=== PATIENT | male | born 1955 | race Caucasian/White ===

== ENCOUNTER 2021-09-16 09:34 | Emergency (ER) | payer MEDICARE ==
[2021-09-16] MEDS: Lactated Ringers 1,000 ML IV SCH (06:51)
[~2021-09-16 09:34] MED LIST: DIPRIVAN 200 MG/20 ML IV ONE; Lactated Ringers 1,000 ML IV ONE
[2021-09-16] MEDS ORDERED: CARDIZEM DRIP 100 MG/100 ML D5W 100 ML IV PRN (09:43)
[2021-09-16] MEDS ORDERED: Cardizem IV 50 MG/10 ML IV ONE ×2 (09:43→10:11)
[2021-09-16] MEDS ORDERED: BABY ASPIRIN 81 MG CHEW PO ONE (09:55)
[2021-09-16] MEDS ORDERED: ENOXAPARIN SODIUM SQ SCH (10:00)
--- NOTE | 2021-09-16 10:01 | ERPHSYRPT ---
- History of Present Illness Time Seen by Provider: 09/16/21 09:45 Source: patient Exam Limitations: no limitations Patient Subjective Stated Complaint: Tachycardia Triage Nursing Assessment: Patient brought to ED per outpatient RN and placed in room. Patient was in recovery and it was noted patient was in SVT with HR of 170s. Patient denies pain or discomfort. Lungs clear a/p steve. Physician History: Patient is a 66-year-old male presents to our ED from recovery status post colonoscopy. Patient was observed to be in SVT and was brought to our ED for evaluation. No chest pain. Patient does state that he had been experiencing some shortness of breath particularly with exertion. Upon arrival to our ED EKG showed patient in atrial fibrillation with rapid ventricular rate. No dizziness no lightheadedness. No nausea or vomiting. Patient denies a history of the same. Patient has a history of stents. Patient currently on Plavix. Colonoscopy was performed Dr. Mac. Patient is currently asymptomatic. He voices no other complaints or concerns at this time. Timing/Duration: today Severity: moderate Modifying Factors: Improves With: nothing Associated Symptoms: shortness of breath Allergies/Adverse Reactions: adhesives Adverse Reaction (Unknown, Uncoded 09/16/21 09:36) Home Medications: Atorvastatin Calcium 40 mg PO DAILY 09/13/21 [History] Cetirizine HCl [Zyrtec] 10 mg PO DAILY 09/13/21 [History] Clopidogrel Bisulfate 75 mg [PLAVIX 75 MG Tablet] 75 mg PO DAILY 09/13/21 [History] Empagliflozin [Jardiance] 10 mg PO DAILY 09/13/21 [History] Levothyroxine Sodium [Levothyroxine] 50 mcg PO DAILY 09/13/21 [History] Mv-Mn/Iron/Folic Acid/Herb 190 [Vitamin D3 Complete Caplet] 1 tab PO DAILY 09/13/21 [History] Omeprazole 40 mg PO DAILY 09/13/21 [History] Propranolol HCl 20 mg PO BID 09/13/21 [History] Tamsulosin HCl 0.4 mg [Flomax 0.4 MG] 0.4 mg PO DAILY 09/13/21 [History] Ubidecarenone [Co Q-10] 200 mg PO DAILY 09/13/21 [History] hydroCHLOROthiazide [Hydrochlorothiazide] 12.5 mg PO DAILY 09/13/21 [History] Hx Tetanus, Diphtheria Vaccination/Date Given: Yes Hx Influenza Vaccination/Date Given: Yes Hx Pneumococcal Vaccination/Date Given: No Immunizations Up to Date: Yes Travel Risk - International Travel Have you traveled outside of the country in past 3 weeks: No - Coronavirus Screening Are you exhibiting any of the following symptoms?: No Close contact with a COVID-19 positive Pt in past 14-21 Days: No - Vaccine Status Have you recieved a Covid-19 vaccination: Yes [employer]: [employer] - Vaccination Dates Date of 2cond Vaccination (if applicable): October 2020 Comment: Booster Aug 2021 - Review of Systems Constitutional: No Symptoms, No Fever, No Chills Eyes: No Symptoms Ears, Nose, & Throat: No Symptoms Respiratory: No Symptoms, No Cough, No Dyspnea Cardiac: No Symptoms, No Chest Pain, No Edema, No Syncope Abdominal/Gastrointestinal: No Symptoms, No Abdominal Pain, No Nausea, No Vom iting, No Diarrhea Genitourinary Symptoms: No Symptoms, No Dysuria Musculoskeletal: No Symptoms, No Back Pain, No Neck Pain Skin: No Symptoms, No Rash Neurological: No Symptoms, No Dizziness, No Focal Weakness, No Sensory Changes Psychological: No Symptoms Endocrine: No Symptoms Hematologic/Lymphatic: No Symptoms Immunological/Allergic: No Symptoms All Other Systems: Reviewed and Negative - Past Medical History Pertinent Past Medical History: Yes Neurological History: No Pertinent History ENT History: No Pertinent History Cardiac History: Congenital Heart Disease Respiratory History: No Pertinent History Endocrine Medical History: Diabetes Type II, Hypothyroidism Musculoskeletal History: Other GI Medical History: GERD, Gallbladder Disease History: No Pertinent History Psycho-Social History: No Pertinent History Male Reproductive Disorders: Prostate Problems Other Medical History: Hard of hearing wears hearing aids - Past Surgical History Past Surgical History: Yes Neuro Surgical History: No Pertinent History Cardiac: Cardiac Stent Respiratory: No Pertinent History Gastrointestinal: Cholecystectomy Genitourinary: No Pertinent History Musculoskeletal: Orthopedic Surgery Male Surgical History: No Pertinent History Other Surgical History: Rt Shoulder,rt knee. Colonoscopy - Social History Smoking Status: Former smoker Exposure to second hand smoke: No Drug Use: none Patient Lives Alone: No - Nursing Vital Signs Nursing Vital Signs: Initial Vital Signs Temperature 97.8 F 09/16/21 07:08 Pulse Rate 54 L 09/16/21 07:08 Respiratory Rate 18 09/16/21 07:08 Blood Pressure 140/86 09/16/21 07:08 O2 Sat by Pulse Oximetry 94 L 09/16/21 07:08 Pain Scale Pain Intensity 0 - Physical Exam General Appearance: no apparent distress, alert Eye Exam: PERRL/EOMI, eyes nml inspection Ears, Nose, Throat Exam: normal ENT inspection, TMs normal, pharynx normal, moist mucous membranes Neck Exam: normal inspection, non-tender, supple, full range of motion Respiratory Exam: normal breath sounds, lungs clear, No respiratory distress Cardiovascular Exam: regular rate/rhythm, normal heart sounds, normal peripheral pulses Gastrointestinal/Abdomen Exam: soft, normal bowel sounds, No tenderness, No mass Back Exam: normal inspection, normal range of motion, No CVA tenderness, No vertebral tenderness Extremity Exam: normal inspection, normal range of motion, pelvis stable Neurologic Exam: alert, oriented x 3, cooperative, normal mood/affect, nml cerebellar function, nml station & gait, sensation nml, No motor deficits Skin Exam: normal color, warm, dry, No rash Lymphatic Exam: No adenopathy SpO2 Interpretation: normal SpO2: 96 O2 Delivery: Room Air - Course Nursing assessment & vital signs reviewed: Yes EKG Interpreted by Me: RATE, A-fib, NORMAL AXIS, NORMAL QRS (Fibrillation with rapid ventricular response) - Radiology Exams Chest X-ray Interpretation: Teleradiologist Report (Portable chest demonstrates normal heart and lungs. Bony thorax intact with moderate degenerative changes and minimal dextroscoliosis.) Ordered Tests: Active Orders 24 hr Category Date Time Status Section[employer] As[employer]er STAT Care 09/16/21 09:43 Active EKG-ER Only STAT Care 09/16/21 09:43 Active IV Insertion STAT Care 09/16/21 09:43 Active Pulse Oximetry (ED) STAT Care 09/16/21 09:43 Active CHEST 1 VIEW (PORTABLE) Stat Exams 09/16/21 09:43 Completed CBC W DIFF Stat Lab 09/16/21 10:10 Completed CMP Stat Lab 09/16/21 10:10 Completed NT PRO BNP Stat Lab 09/16/21 10:10 Completed POCT GLUCOSE Stat Lab 09/16/21 07:31 Received POCT GLUCOSE Stat Lab 09/16/21 07:37 Completed TROPONIN Q3H Lab 09/16/21 10:10 Completed TROPONIN Q3H Lab 09/16/21 12:45 Ordered TROPONIN Q3H Lab 09/16/21 15:45 Ordered TROPONIN Q3H Lab 09/16/21 18:45 Ordered TROPONIN Q3H Lab 09/16/21 21:45 Ordered UA W/RFX UR CULTURE Stat Lab 09/16/21 10:05 Completed EKG STAT RT 09/16/21 10:09 Active Transfer Order Routine Transfer 09/16/21 Ordered Medication Summary Generic Name Dose Route Start Last Admin Trade Name Walter PRN Reason Stop Dose Admin Enoxaparin Sodium 100 mg 09/16/21 10:00 09/16/21 10:14 Enoxaparin Sodium 100 Mg/Ml Syringe 1 mg/kg (100 mg) 10/16/21 09:59 100 mg SQ Administration Q24H VITOR Lactated Ringer's 1,000 mls @ 50 mls/hr 09/16/21 07:00 09/16/21 06:51 Lactated Ringers IV 10/16/21 06:59 50 mls/hr .Q20H VITOR Administration Diltiazem HCl 100 mls @ 5 mls/hr 09/16/21 09:43 09/16/21 10:15 Cardizem Drip 100 Mg/100 Ml D5w IV 10/16/21 09:42 5 mg/hr .Q20H PRN 5 mls/hr HEART RATE/ A-FIB Administration Protocol 5 MG/HR Discontinued Medications Generic Name Dose Route Start Last Admin Trade Name Walter PRN Reason Stop Dose Admin Aspirin 324 mg 09/16/21 09:55 09/16/21 10:16 Aspirin 81 Mg Tab.Chew PO 09/16/21 09:56 324 mg STAT ONE Administration Aspirin Confirm 09/16/21 10:11 Aspirin 81 Mg Tab.Chew Administered 09/16/21 10:12 Dose 324 mg .ROUTE .STK-MED ONE Diltiazem HCl 15 mg 09/16/21 09:43 09/16/21 10:14 Diltiazem Hcl Iv 5 Mg/Ml Vial IV 09/16/21 09:44 15 mg STAT ONE Administration Diltiazem HCl Confirm 09/16/21 10:11 Diltiazem Hcl Iv 5 Mg/Ml Vial Administered 09/16/21 10:12 Dose 50 mg IV .STK-MED ONE Lactated Ringer's Confirm 09/16/21 08:35 Lactated Ringers Administered 09/16/21 08:36 Dose 1,000 mls @ ud IV .STK-MED ONE Propofol Confirm 09/16/21 07:52 Propofol 10 Mg/Ml 20ml Vial Administered 09/16/21 07:53 Dose 400 mg IV .STK-MED ONE Lab/Rad Data: Laboratory Result Diagrams 09/16/21 10:10 09/16/21 10:10 Laboratory Results 09/16/21 09/16/21 09/16/21 Range/Units 10:10 10:10 10:10 WBC 7.4 (4.0-10.5) K/mm3 RBC 5.20 (4.1-5.6) M/mm3 Hgb 16.2 (12.5-18.0) gm/dl Hct 48.0 (42-50) % MCV 92.3 (78-100) fl MCH 31.2 (26-32) pg MCHC 33.8 (32-36) g/dl RDW 12.4 (11.5-14.0) % Plt Count 209 (150-450) K/mm3 MPV 9.3 (7.5-11.0) fl Gran % 66.8 H (36.0-66.0) % Eos # (Auto) 0.11 (0-0.5) Absolute Lymphs (auto) 1.24 (1.0-4.6) Absolute Monos (auto) 1.08 (0.0-1.3) Lymphocytes % 16.7 L (24.0-44.0) % Monocytes % 14.6 H (0.0-12.0) % Eosinophils % 1.5 (0.00-5.0) % Basophils % 0.4 (0.0-0.4) % Absolute Granulocytes 4.95 (1.4-6.9) Basophils # 0.03 (0-0.4) Sodium 139 (137-145) mmol/L Potassium 3.8 (3.5-5.1) mmol/L Chloride 102 (98-107) mmol/L Carbon Dioxide 25 (22-30) mmol/L Anion Gap 15.2 H (5-15) MEQ/L BUN 16 (9-20) mg/dL Creatinine 1.02 (0.66-1.25) mg/dL Estimated GFR > 60.0 ML/MIN Glucose 124 H (74-106) mg/dL POC Glucometer (74 to 106) mg/dL Calcium 9.2 (8.4-10.2) mg/dL Total Bilirubin 1.60 H (0.2-1.3) mg/dL AST 31 (17-59) U/L ALT 29 (0-50) U/L Alkaline Phosphatase 91 (38-126) U/L Troponin I 0.018 (0.000-0.034) ng/mL NT-Pro-B Natriuret Pep 127 (0-900) pg/mL Serum Total Protein 7.4 (6.3-8.2) g/dL Albumin 4.3 (3.5-5.0) g/dL Urine Color (YELLOW) Urine Appearance (CLEAR) Urine pH (5-6) Ur Specific Davy (1.005-1.025) Urine Protein (Negative) Urine Ketones (NEGATIVE) Urine Blood (0-5) Herrera/ul Urine Nitrite (NEGATIVE) Urine Bilirubin (NEGATIVE) Urine Urobilinogen (0-1) mg/dL Ur Leukocyte Esterase (NEGATIVE) Urine WBC (Auto) (0-5) /HPF Urine RBC (Auto) (0-2) /HPF U Epithel Cells (Auto) (FEW) /HPF Urine Bacteria (Auto) (NEGATIVE) /HPF Urine Culture Reflexed (NO) Urine Glucose (NEGATIVE) mg/dL Influenza Type A Ag (NEGATIVE) Influenza Type B Ag (NEGATIVE) RSV (PCR) (Negative) SARS-CoV-2 (PCR) (NEGATIVE) 09/16/21 09/16/21 09/16/21 Range/Units 10:05 10:05 07:37 WBC (4.0-10.5) K/mm3 RBC (4.1-5.6) M/mm3 Hgb (12.5-18.0) gm/dl Hct (42-50) % MCV (78-100) fl MCH (26-32) pg MCHC (32-36) g/dl RDW (11.5-14.0) % Plt Count (150-450) K/mm3 MPV (7.5-11.0) fl Gran % (36.0-66.0) % Eos # (Auto) (0-0.5) Absolute Lymphs (auto) (1.0-4.6) Absolute Monos (auto) (0.0-1.3) Lymphocytes % (24.0-44.0) % Monocytes % (0.0-12.0) % Eosinophils % (0.00-5.0) % Basophils % (0.0-0.4) % Absolute Granulocytes (1.4-6.9) Basophils # (0-0.4) Sodium (137-145) mmol/L Potassium (3.5-5.1) mmol/L Chloride (98-107) mmol/L Carbon Dioxide (22-30) mmol/L Anion Gap (5-15) MEQ/L BUN (9-20) mg/dL Creatinine (0.66-1.25) mg/dL Estimated GFR ML/MIN Glucose (74-106) mg/dL POC Glucometer 137 H (74 to 106) mg/dL Calcium (8.4-10.2) mg/dL Total Bilirubin (0.2-1.3) mg/dL AST (17-59) U/L ALT (0-50) U/L Alkaline Phosphatase (38-126) U/L Troponin I (0.000-0.034) ng/mL NT-Pro-B Natriuret Pep (0-900) pg/mL Serum Total Protein (6.3-8.2) g/dL Albumin (3.5-5.0) g/dL Urine Color YELLOW (YELLOW) Urine Appearance CLEAR (CLEAR) Urine pH 6.0 (5-6) Ur Specific Davy 1.013 (1.005-1.025) Urine Protein NEGATIVE (Negative) Urine Ketones TRACE (NEGATIVE) Urine Blood NEGATIVE (0-5) Herrera/ul Urine Nitrite NEGATIVE (NEGATIVE) Urine Bilirubin NEGATIVE (NEGATIVE) Urine Urobilinogen NEGATIVE (0-1) mg/dL Ur Leukocyte Esterase NEGATIVE (NEGATIVE) Urine WBC (Auto) 0-2 (0-5) /HPF Urine RBC (Auto) 0-2 (0-2) /HPF U Epithel Cells (Auto) FEW (FEW) /HPF Urine Bacteria (Auto) FEW (NEGATIVE) /HPF Urine Culture Reflexed NO (NO) Urine Glucose >=500 (NEGATIVE) mg/dL Influenza Type A Ag NEGATIVE (NEGATIVE) Influenza Type B Ag NEGATIVE (NEGATIVE) RSV (PCR) NEGATIVE (Negative) SARS-CoV-2 (PCR) NEGATIVE (NEGATIVE) - Progress Progress: improved Progress Note: Case discussed with Dr. Quevedo who accepts admission to observation. Dr. Mac aware that patient will be admitted to Dr. Quevedo's service. Plan of care discussed with patient patient agreed to admission [facility] for further evaluation and treatment. Portions of this note were created with voice recognition technology. There may be grammatical, spelling, punctuation or sound alike errors Admission diagnoses A. fib with RVR post colonoscopy 09/16/21 11:[address] Nara Will see patient in: hospital (observation) Counseled pt/family regarding: lab results, diagnosis, rad results - Departure Departure Disposition: Observation Clinical Impression: Total bilirubin, elevated, Glucosuria, Atrial fibrillation with rapid ventricular response Condition: Stable Critical Care Time: No Referrals: YANICK MAC [Primary Care Provider] - Follow up/PCP as directed
--- NOTE | 2021-09-16 10:04 | XRAY ---
Indication: Short of breath. Comparison: None Portable chest demonstrates normal heart and lungs. Bony thorax intact with moderate degenerative changes and minimal dextroscoliosis.
[2021-09-16] MEDS ORDERED: BABY ASPIRIN 81 MG CHEW ONE (10:11)
[2021-09-16 10:18] LABS: Absolute Neutrophil Ct (ANC) 4.95 (1.4-6.9); Basophil (Absolute #) 0.03 (0-0.4); Eosinophil % 1.5 % (0.00-5.0); Eosinophil (Absolute #) 0.11 (0-0.5); Hemoglobin 16.2 gm/dl (12.5-18.0); Lymphocyte (Absolute #) 1.24 (1.0-4.6); Lymphocytes % 16.7 % (24.0-44.0); Mean Cell Volume 92.3 fl (78-100); Mean Corpuscular Hemoglobin 31.2 pg (26-32); Mean Corpuscular Hgb Concent. 33.8 g/dl (32-36); Mean Platelet Volume 9.3 fl (7.5-11.0); Monocyte (Absolute #) 1.08 (0.0-1.3); Monocytes % 14.6 % (0.0-12.0); Neutrophil % 66.8 % (36.0-66.0); Platelet Count 209 K/mm3 (150-450); Red Cell Distribution Width 12.4 % (11.5-14.0); White Blood Count 7.4 K/mm3 (4.0-10.5)
[2021-09-16 10:19] LABS: Appearance CLEAR (CLEAR); Bilirubin NEGATIVE (NEGATIVE); Blood NEGATIVE Ery/ul (0-5); Glucose >=500 mg/dL (NEGATIVE); Ketones TRACE (NEGATIVE); Leukocyte Esterase NEGATIVE (NEGATIVE); Nitrite NEGATIVE (NEGATIVE); Protein,Urine Dip NEGATIVE (Negative); Specific Gravity 1.013 (1.005-1.025); Urobilinogen NEGATIVE mg/dL (0-1)
[2021-09-16 10:22] LABS: Bacteria FEW /HPF (NEGATIVE); Epithelial Cells FEW /HPF (FEW); RBC 0-2 /HPF (0-2); WBC 0-2 /HPF (0-5)
[2021-09-16 10:26] LABS: ALBUMIN 4.3 g/dL (3.5-5.0); ALKALINE PHOSPHATASE 91 U/L (38-126); ANION GAP 15.2 MEQ/L (5-15); BLOOD UREA NITROGEN 16 mg/dL (9-20); CHLORIDE 102 mmol/L (98-107); Calcium 9.2 mg/dL (8.4-10.2); Carbon Dioxide 25 mmol/L (22-30); Creatinine 1 1.02 mg/dL (0.66-1.25); EST GLOMERULAR FILTRATION RATE > 60.0 ML/MIN; Glucose 124 mg/dL (74-106); Potassium 3.8 mmol/L (3.5-5.1); SGOT/AST 31 U/L (17-59); SGPT/ALT 29 U/L (0-50); SODIUM 139 mmol/L (137-145); Total Protein 7.4 g/dL (6.3-8.2)
[2021-09-16 10:55] LABS: INFLUENZA A NEGATIVE (NEGATIVE); INFLUENZA B NEGATIVE (NEGATIVE); RESPIRATORY SYNCTIAL VIRUS NEGATIVE (Negative); SARS-CoV-2 Xpert Express NEGATIVE (NEGATIVE)
[2021-09-16 11:01] LABS: NT PRO BNP 127 pg/mL (0-900)
--- NOTE | 2021-09-16 13:30 | OP ---
SURGERY DATE/TIME: 09/16/2021 0757 PREOPERATIVE DIAGNOSIS: Screening exam. POSTOPERATIVE DIAGNOSES: 1) Moderate sigmoid diverticulosis. 2) The patient was also noted to be in atrial fibrillation. PROCEDURE: Colonoscopy. SURGEON: Dr. Mac. ANESTHESIA: MAC. Medications given by anesthesia department. HISTORY: The patient is a 66-year-old white male patient reporting his previous colonoscopy was 13 years ago and was normal at that time. The patient is felt the need to have endoscopic evaluation. He was appraised of the risks of the procedure including the risk of perforation, phlebitis, untoward reaction to medication, bleeding and missed lesions. The patient verbalized his understanding and desired to have the procedure performed. DESCRIPTION OF PROCEDURE: The patient was given the medications by the anesthesia department. He was placed in the left lateral decubitus position. A digital rectal examination was performed and revealed normal anal sphincter tone and no masses. The flexible Olympus pediatric colonoscope was used to intubate the rectum. A view of the colon was developed sequentially to the cecum. Upon insertion and withdrawal was noted sigmoid diverticulosis moderate in nature. The scope was removed from the patient who tolerated the procedure well and was sent back to OP recovery in good condition. The prep was noted to be fair. There were some solid stool still left in the colon in certain places and the right side of colon required a lot of suction and flexion to see clearly. We will obtain a 12-leak EKG. The patient is already on aspirin and Plavix from a previous stent. Will notify his primary care provider of diagnosis of what appears to be new for him of atrial fibrillation.
--- NOTE | 2021-09-16 14:01 | PCM.HP ---
History of Present Illness - Chief Complaint Chief Complaint: screening History of Present Illness: is a 66 year old male who had a screening colonoscopy this morning, in recovery he had an elevated heart rate up to 180 with irregularities, he has had no chest pain but perhaps some shortness of breath today. He has a prior history of CAD with stent placed 10 years ago. He has no prior history of a fib or arrythmia. - Review of Systems Constitutional: No Fever, No Chills Respiratory: No Cough, No Short Of Breath Cardiac: No Chest Pain, No Edema, No Syncope Abdominal/Gastrointestinal: No Abdominal Pain, No Nausea, No Vomiting, No Diarrhea Genitourinary Symptoms: No Dysuria Skin: No Rash Neurological: No Dizziness, No Focal Weakness, No Sensory Changes All Other Systems: Reviewed and Negative Medications & Allergies Home Medications: Home Medication List Atorvastatin Calcium 40 mg PO DAILY 09/13/21 [History Confirmed 09/16/21] Cetirizine HCl [Zyrtec] 10 mg PO DAILY 09/13/21 [History Confirmed 09/16/21] Clopidogrel Bisulfate 75 mg [PLAVIX 75 MG Tablet] 75 mg PO DAILY 09/13/21 [History Confirmed 09/16/21] Empagliflozin [Jardiance] 10 mg PO DAILY 09/13/21 [History Confirmed 09/16/21] Levothyroxine Sodium [Levothyroxine] 50 mcg PO DAILY 09/13/21 [History Confirmed 09/16/21] Mv-Mn/Iron/Folic Acid/Herb 190 [Vitamin D3 Complete Caplet] 1 tab PO DAILY 09/13/21 [History Confirmed 09/16/21] Omeprazole 40 mg PO DAILY 09/13/21 [History Confirmed 09/16/21] Propranolol HCl 20 mg PO BID 09/13/21 [History Confirmed 09/16/21] Tamsulosin HCl 0.4 mg [Flomax 0.4 MG] 0.4 mg PO DAILY 09/13/21 [History Confirmed 09/16/21] Ubidecarenone [Co Q-10] 200 mg PO DAILY 09/13/21 [History Confirmed 09/16/21] hydroCHLOROthiazide [Hydrochlorothiazide] 12.5 mg PO DAILY 09/13/21 [History Confirmed 09/16/21] Allergies/Adverse Reactions: Allergies Allergy/AdvReac Type Severity Reaction Status Date / Time adhesives AdvReac Unknown Uncoded 09/16/21 09:36 - Past Medical History Past Medical History: Yes Neurological History: No Pertinent History ENT History: No Pertinent History Cardiac History: Congenital Heart Disease Respiratory History: No Pertinent History Endocrine Medical History: Diabetes Type II, Hypothyroidism Musculoskelatal History: Other GI Medical History: GERD, Gallbladder Disease History: No Pertinent History Pyscho-Social History: No Pertinent History Male Reproductive Disorders: Prostate Problems Comment: Hard of hearing wears hearing aids - Past Surgical History Past Surgical History: Yes Neuro Surgical History: No Pertinent History Cardiac History: Cardiac Stent Respiratory Surgery: No Pertinent History GI Surgical History: Cholecystectomy Genitourinary Surgical Hx: No Pertinent History Musculskeletal Surgical Hx: Orthopedic Surgery Male Surgical History: No Pertinent History Other Surgical History: Rt Shoulder,rt knee. Colonoscopy - Social History Smoking Status: Former smoker Exposure to second hand smoke: No Alcohol: Rarely Drug Use: none - Physical Exam Vital Signs: Vital Signs - 24 hr Temp Pulse Resp BP BP Pulse Ox 09/16/21 13:17 142 H 18 104/84 09/16/21 13:00 126 H 20 103/57 95 09/16/21 11:53 96 09/16/21 10:34 93 H 18 126/101 98 09/16/21 10:15 99 H 16 101/82 09/16/21 10:09 107 H 09/16/21 09:45 96 09/16/21 09:36 97.5 F 86 18 101/82 99 09/16/21 08:55 97.8 F 64 18 122/72 97 09/16/21 07:19 97.8 F 54 L 18 140/86 94 L 09/16/21 07:08 97.8 F 54 L 18 140/86 94 L General Appearance: no apparent distress, alert Neurologic Exam: alert, oriented x 3, cooperative, normal mood/affect, nml cerebellar function, nml station & gait, sensation nml, No motor deficits Respiratory Exam: normal breath sounds, lungs clear, No respiratory distress Cardiovascular Exam: irregular Gastrointestinal/Abdomen Exam: soft, normal bowel sounds, No tenderness, No mass Extremity Exam: normal inspection, normal range of motion, pelvis stable Skin Exam: normal color, warm, dry, No rash Results - Labs Lab/Micro Results: Lab Results-Last 24 Hours 09/16/21 09/16/21 09/16/21 Range/Units 07:37 10:05 10:05 WBC (4.0-10.5) K/mm3 RBC (4.1-5.6) M/mm3 Hgb (12.5-18.0) gm/dl Hct (42-50) % MCV (78-100) fl MCH (26-32) pg MCHC (32-36) g/dl RDW (11.5-14.0) % Plt Count (150-450) K/mm3 MPV (7.5-11.0) fl Gran % (36.0-66.0) % Eos # (Auto) (0-0.5) Absolute Lymphs (auto) (1.0-4.6) Absolute Monos (auto) (0.0-1.3) Lymphocytes % (24.0-44.0) % Monocytes % (0.0-12.0) % Eosinophils % (0.00-5.0) % Basophils % (0.0-0.4) % Absolute Granulocytes (1.4-6.9) Basophils # (0-0.4) Sodium (137-145) mmol/L Potassium (3.5-5.1) mmol/L Chloride (98-107) mmol/L Carbon Dioxide (22-30) mmol/L Anion Gap (5-15) MEQ/L BUN (9-20) mg/dL Creatinine (0.66-1.25) mg/dL Estimated GFR ML/MIN Glucose (74-106) mg/dL POC Glucometer 137 H (74 to 106) mg/dL Calcium (8.4-10.2) mg/dL Total Bilirubin (0.2-1.3) mg/dL AST (17-59) U/L ALT (0-50) U/L Alkaline Phosphatase (38-126) U/L Troponin I (0.000-0.034) ng/mL NT-Pro-B Natriuret Pep (0-900) pg/mL Serum Total Protein (6.3-8.2) g/dL Albumin (3.5-5.0) g/dL Urine Color YELLOW (YELLOW) Urine Appearance CLEAR (CLEAR) Urine pH 6.0 (5-6) Ur Specific [place] 1.013 (1.005-1.025) Urine Protein NEGATIVE (Negative) Urine Ketones TRACE (NEGATIVE) Urine Blood NEGATIVE (0-5) Herrera/ul Urine Nitrite NEGATIVE (NEGATIVE) Urine Bilirubin NEGATIVE (NEGATIVE) Urine Urobilinogen NEGATIVE (0-1) mg/dL Ur Leukocyte Esterase NEGATIVE (NEGATIVE) Urine WBC (Auto) 0-2 (0-5) /HPF Urine RBC (Auto) 0-2 (0-2) /HPF U Epithel Cells (Auto) FEW (FEW) /HPF Urine Bacteria (Auto) FEW (NEGATIVE) /HPF Urine Culture Reflexed NO (NO) Urine Glucose >=500 (NEGATIVE) mg/dL Influenza Type A Ag NEGATIVE (NEGATIVE) Influenza Type B Ag NEGATIVE (NEGATIVE) RSV (PCR) NEGATIVE (Negative) SARS-CoV-2 (PCR) NEGATIVE (NEGATIVE) 09/16/21 09/16/21 09/16/21 Range/Units 10:10 10:10 10:10 WBC 7.4 (4.0-10.5) K/mm3 RBC 5.20 (4.1-5.6) M/mm3 Hgb 16.2 (12.5-18.0) gm/dl Hct 48.0 (42-50) % MCV 92.3 (78-100) fl MCH 31.2 (26-32) pg MCHC 33.8 (32-36) g/dl RDW 12.4 (11.5-14.0) % Plt Count 209 (150-450) K/mm3 MPV 9.3 (7.5-11.0) fl Gran % 66.8 H (36.0-66.0) % Eos # (Auto) 0.11 (0-0.5) Absolute Lymphs (auto) 1.24 (1.0-4.6) Absolute Monos (auto) 1.08 (0.0-1.3) Lymphocytes % 16.7 L (24.0-44.0) % Monocytes % 14.6 H (0.0-12.0) % Eosinophils % 1.5 (0.00-5.0) % Basophils % 0.4 (0.0-0.4) % Absolute Granulocytes 4.95 (1.4-6.9) Basophils # 0.03 (0-0.4) Sodium 139 (137-145) mmol/L Potassium 3.8 (3.5-5.1) mmol/L Chloride 102 (98-107) mmol/L Carbon Dioxide 25 (22-30) mmol/L Anion Gap 15.2 H (5-15) MEQ/L BUN 16 (9-20) mg/dL Creatinine 1.02 (0.66-1.25) mg/dL Estimated GFR > 60.0 ML/MIN Glucose 124 H (74-106) mg/dL POC Glucometer (74 to 106) mg/dL Calcium 9.2 (8.4-10.2) mg/dL Total Bilirubin 1.60 H (0.2-1.3) mg/dL AST 31 (17-59) U/L ALT 29 (0-50) U/L Alkaline Phosphatase 91 (38-126) U/L Troponin I 0.018 (0.000-0.034) ng/mL NT-Pro-B Natriuret Pep 127 (0-900) pg/mL Serum Total Protein 7.4 (6.3-8.2) g/dL Albumin 4.3 (3.5-5.0) g/dL Urine Color (YELLOW) Urine Appearance (CLEAR) Urine pH (5-6) Ur Specific [place] (1.005-1.025) Urine Protein (Negative) Urine Ketones (NEGATIVE) Urine Blood (0-5) Herrera/ul Urine Nitrite (NEGATIVE) Urine Bilirubin (NEGATIVE) Urine Urobilinogen (0-1) mg/dL Ur Leukocyte Esterase (NEGATIVE) Urine WBC (Auto) (0-5) /HPF Urine RBC (Auto) (0-2) /HPF U Epithel Cells (Auto) (FEW) /HPF Urine Bacteria (Auto) (NEGATIVE) /HPF Urine Culture Reflexed (NO) Urine Glucose (NEGATIVE) mg/dL Influenza Type A Ag (NEGATIVE) Influenza Type B Ag (NEGATIVE) RSV (PCR) (Negative) SARS-CoV-2 (PCR) (NEGATIVE) 09/16/21 Range/Units 12:40 WBC (4.0-10.5) K/mm3 RBC (4.1-5.6) M/mm3 Hgb (12.5-18.0) gm/dl Hct (42-50) % MCV (78-100) fl MCH (26-32) pg MCHC (32-36) g/dl RDW (11.5-14.0) % Plt Count (150-450) K/mm3 MPV (7.5-11.0) fl Gran % (36.0-66.0) % Eos # (Auto) (0-0.5) Absolute Lymphs (auto) (1.0-4.6) Absolute Monos (auto) (0.0-1.3) Lymphocytes % (24.0-44.0) % Monocytes % (0.0-12.0) % Eosinophils % (0.00-5.0) % Basophils % (0.0-0.4) % Absolute Granulocytes (1.4-6.9) Basophils # (0-0.4) Sodium (137-145) mmol/L Potassium (3.5-5.1) mmol/L Chloride (98-107) mmol/L Carbon Dioxide (22-30) mmol/L Anion Gap (5-15) MEQ/L BUN (9-20) mg/dL Creatinine (0.66-1.25) mg/dL Estimated GFR ML/MIN Glucose (74-106) mg/dL POC Glucometer (74 to 106) mg/dL Calcium (8.4-10.2) mg/dL Total Bilirubin (0.2-1.3) mg/dL AST (17-59) U/L ALT (0-50) U/L Alkaline Phosphatase (38-126) U/L Troponin I 0.014 (0.000-0.034) ng/mL NT-Pro-B Natriuret Pep (0-900) pg/mL Serum Total Protein (6.3-8.2) g/dL Albumin (3.5-5.0) g/dL Urine Color (YELLOW) Urine Appearance (CLEAR) Urine pH (5-6) Ur Specific [place] (1.005-1.025) Urine Protein (Negative) Urine Ketones (NEGATIVE) Urine Blood (0-5) Herrera/ul Urine Nitrite (NEGATIVE) Urine Bilirubin (NEGATIVE) Urine Urobilinogen (0-1) mg/dL Ur Leukocyte Esterase (NEGATIVE) Urine WBC (Auto) (0-5) /HPF Urine RBC (Auto) (0-2) /HPF U Epithel Cells (Auto) (FEW) /HPF Urine Bacteria (Auto) (NEGATIVE) /HPF Urine Culture Reflexed (NO) Urine Glucose (NEGATIVE) mg/dL Influenza Type A Ag (NEGATIVE) Influenza Type B Ag (NEGATIVE) RSV (PCR) (Negative) SARS-CoV-2 (PCR) (NEGATIVE) - Radiology Impressions Radiology Exams & Impressions: Radiology Procedures Category Date Time Status CHEST 1 VIEW (PORTABLE) Stat Exams 09/16/21 09:43 Completed - Other Procedures and Tests Respiratory Therapy 09/16/21 10:09 EKG STAT Assessment/Plan (1) Atrial fibrillation with rapid ventricular response Current Visit: Yes Status: Acute Assessment & Plan: new onset, will cover with lovenox and continue cardizem gtt. check echo and th yroid functions, cycle troponins. Code(s): I48.91 - UNSPECIFIED ATRIAL FIBRILLATION (2) Type 2 diabetes mellitus Current Visit: Yes Status: Acute (3) Coronary artery disease Current Visit: Yes Status: Acute Code(s): I25.10 - ATHSCL HEART DISEASE OF [place] CORONARY ARTERY W/O ANG PCTRS
[2021-09-16] MEDS ORDERED: MILK OF MAGNESIA 30 ML PO PRN (15:05)
[2021-09-16] MEDS ORDERED: MAALOX ES 30 ML UNIT DOSE PO PRN (15:05)
[2021-09-16] MEDS ORDERED: TYLENOL 325 MG PO PRN (15:05)
[2021-09-16] MEDS ORDERED: Senokot-S Tablet PO PRN (15:05)
[2021-09-16] MEDS ORDERED: Zofran 4 MG/2 ML VIAL IV PRN (15:05)
[2021-09-16] MEDS ORDERED: Flomax 0.4 MG PO ONE (22:00)
[2021-09-16] MEDS ORDERED: Cardizem 30 MG PO SCH (22:00)
[2021-09-16] MEDS ORDERED: Inderal 20 MG PO ONE (22:00)
[2021-09-17 04:23] VITALS: BP 112/71
[2021-09-17] MEDS: Lactated Ringers 1,000 ML IV SCH (05:38)
[2021-09-17 06:53] LABS: ALBUMIN 3.7 g/dL (3.5-5.0); ALKALINE PHOSPHATASE 75 U/L (38-126); ANION GAP 10.8 MEQ/L (5-15); BLOOD UREA NITROGEN 14 mg/dL (9-20); CHLORIDE 105 mmol/L (98-107); Calcium 8.6 mg/dL (8.4-10.2); Carbon Dioxide 27 mmol/L (22-30); Cholesterol 153 mg/dL (50-200); Creatinine 1 1.02 mg/dL (0.66-1.25); EST GLOMERULAR FILTRATION RATE > 60.0 ML/MIN; Glucose 141 mg/dL (74-106); HDL CHOLESTEROL 37 mg/dL (40-60); LDL, DIRECT 91 mg/dL (30-100); MAGNESIUM 1.9 mg/dL (1.6-2.3); Potassium 3.8 mmol/L (3.5-5.1); Risk Ratio 4.1; SGOT/AST 22 U/L (17-59); SGPT/ALT 22 U/L (0-50); SODIUM 139 mmol/L (137-145); TRIGLYCERIDE 137 mg/dL (30-150); Total Protein 6.5 g/dL (6.3-8.2)
[2021-09-17 07:51] VITALS: PULSE 56; O2SAT 94
--- NOTE | 2021-09-17 08:41 | PCM.DS ---
Discharge Summary Date of Admission: 09/16/21 13:22 Admitting Physician: EMMETT GREEN Primary Care Provider: YANICK CAMARA Allergies Allergies adhesives Adverse Reaction (Unknown, Uncoded 09/16/21 09:36) Hospital Summary - Hospital Course Hospital Course: is a 66 year old male with CAD (hx stents, on plavix) and DM II who had a screening colonoscopy yesterday, in recovery he had an elevated heart rate up to 180 with irregularities. Denied chest pain but had shortness of breath in the a.m. He has no prior history of a fib or arrythmia. He was placed on cardizem drip initially wiht HR in the 80s. He was started on po cardizem and HR has stayed in the 50s-80s in regular rhythm. This morning he will be given cardizem CD (24 hr) 120mg and will be discharged to home. He will continue to monitor his HR. He has been on SQ lovenox here, in addition to his plavix. Will be sent home on Eliquis (first dose here this morning) 5mg po BID pending consultation with his transmitter engineer in charge in [place], thank you. He had an echo and the report is pending. F/u with Dr. Green in 1 week. - Vitals & Intake/Output Vital Signs: Vital Signs Temperature 96.8 F 09/17/21 07:50 Pulse Rate 56 L 09/17/21 07:50 Respiratory Rate 19 09/17/21 07:50 Blood Pressure 112/71 09/17/21 07:50 O2 Sat by Pulse Oximetry 94 L 09/17/21 07:50 Intake & Output: Intake & Output 09/14/21 09/15/21 09/16/21 09/17/21 11:59 11:59 11:59 11:59 Intake Total 1372 Output Total 280 Balance 1092 Weight 102.512 kg 105.9 kg - Lab Result Diagrams: 09/16/21 10:10 09/17/21 04:45 Lab Results-Last 24 Hrs: Lab Results-Last 24 Hours 09/16/21 09/16/21 09/16/21 Range/Units 10:05 10:05 10:10 WBC 7.4 (4.0-10.5) K/mm3 RBC 5.20 (4.1-5.6) M/mm3 Hgb 16.2 (12.5-18.0) gm/dl Hct 48.0 (42-50) % MCV 92.3 (78-100) fl MCH 31.2 (26-32) pg MCHC 33.8 (32-36) g/dl RDW 12.4 (11.5-14.0) % Plt Count 209 (150-450) K/mm3 MPV 9.3 (7.5-11.0) fl Gran % 66.8 H (36.0-66.0) % Eos # (Auto) 0.11 (0-0.5) Absolute Lymphs (auto) 1.24 (1.0-4.6) Absolute Monos (auto) 1.08 (0.0-1.3) Lymphocytes % 16.7 L (24.0-44.0) % Monocytes % 14.6 H (0.0-12.0) % Eosinophils % 1.5 (0.00-5.0) % Basophils % 0.4 (0.0-0.4) % Absolute Granulocytes 4.95 (1.4-6.9) Basophils # 0.03 (0-0.4) Sodium (137-145) mmol/L Potassium (3.5-5.1) mmol/L Chloride (98-107) mmol/L Carbon Dioxide (22-30) mmol/L Anion Gap (5-15) MEQ/L BUN (9-20) mg/dL Creatinine (0.66-1.25) mg/dL Estimated GFR ML/MIN Glucose (74-106) mg/dL Calcium (8.4-10.2) mg/dL Magnesium (1.6-2.3) mg/dL Total Bilirubin (0.2-1.3) mg/dL AST (17-59) U/L ALT (0-50) U/L Alkaline Phosphatase (38-126) U/L Troponin I (0.000-0.034) ng/mL NT-Pro-B Natriuret Pep (0-900) pg/mL Serum Total Protein (6.3-8.2) g/dL Albumin (3.5-5.0) g/dL Triglycerides (30-150) mg/dL Cholesterol (50-200) mg/dL LDL Cholesterol (30-100) mg/dL HDL Cholesterol (40-60) mg/dL Heart Disease Risk Ratio TSH 3rd Generation (0.47-4.68) mIU/L Urine Color YELLOW (YELLOW) Urine Appearance CLEAR (CLEAR) Urine pH 6.0 (5-6) Ur Specific [place] 1.013 (1.005-1.025) Urine Protein NEGATIVE (Negative) Urine Ketones TRACE (NEGATIVE) Urine Blood NEGATIVE (0-5) Herrera/ul Urine Nitrite NEGATIVE (NEGATIVE) Urine Bilirubin NEGATIVE (NEGATIVE) Urine Urobilinogen NEGATIVE (0-1) mg/dL Ur Leukocyte Esterase NEGATIVE (NEGATIVE) Urine WBC (Auto) 0-2 (0-5) /HPF Urine RBC (Auto) 0-2 (0-2) /HPF U Epithel Cells (Auto) FEW (FEW) /HPF Urine Bacteria (Auto) FEW (NEGATIVE) /HPF Urine Culture Reflexed NO (NO) Urine Glucose >=500 (NEGATIVE) mg/dL Influenza Type A Ag NEGATIVE (NEGATIVE) Influenza Type B Ag NEGATIVE (NEGATIVE) RSV (PCR) NEGATIVE (Negative) SARS-CoV-2 (PCR) NEGATIVE (NEGATIVE) 09/16/21 09/16/21 09/16/21 Range/Units 10:10 10:10 10:10 WBC (4.0-10.5) K/mm3 RBC (4.1-5.6) M/mm3 Hgb (12.5-18.0) gm/dl Hct (42-50) % MCV (78-100) fl MCH (26-32) pg MCHC (32-36) g/dl RDW (11.5-14.0) % Plt Count (150-450) K/mm3 MPV (7.5-11.0) fl Gran % (36.0-66.0) % Eos # (Auto) (0-0.5) Absolute Lymphs (auto) (1.0-4.6) Absolute Monos (auto) (0.0-1.3) Lymphocytes % (24.0-44.0) % Monocytes % (0.0-12.0) % Eosinophils % (0.00-5.0) % Basophils % (0.0-0.4) % Absolute Granulocytes (1.4-6.9) Basophils # (0-0.4) Sodium 139 (137-145) mmol/L Potassium 3.8 (3.5-5.1) mmol/L Chloride 102 (98-107) mmol/L Carbon Dioxide 25 (22-30) mmol/L Anion Gap 15.2 H (5-15) MEQ/L BUN 16 (9-20) mg/dL Creatinine 1.02 (0.66-1.25) mg/dL Estimated GFR > 60.0 ML/MIN Glucose 124 H (74-106) mg/dL Calcium 9.2 (8.4-10.2) mg/dL Magnesium (1.6-2.3) mg/dL Total Bilirubin 1.60 H (0.2-1.3) mg/dL AST 31 (17-59) U/L ALT 29 (0-50) U/L Alkaline Phosphatase 91 (38-126) U/L Troponin I 0.018 (0.000-0.034) ng/mL NT-Pro-B Natriuret Pep 127 (0-900) pg/mL Serum Total Protein 7.4 (6.3-8.2) g/dL Albumin 4.3 (3.5-5.0) g/dL Triglycerides (30-150) mg/dL Cholesterol (50-200) mg/dL LDL Cholesterol (30-100) mg/dL HDL Cholesterol (40-60) mg/dL Heart Disease Risk Ratio TSH 3rd Generation 1.730 (0.47-4.68) mIU/L Urine Color (YELLOW) Urine Appearance (CLEAR) Urine pH (5-6) Ur Specific [place] (1.005-1.025) Urine Protein (Negative) Urine Ketones (NEGATIVE) Urine Blood (0-5) Herrera/ul Urine Nitrite (NEGATIVE) Urine Bilirubin (NEGATIVE) Urine Urobilinogen (0-1) mg/dL Ur Leukocyte Esterase (NEGATIVE) Urine WBC (Auto) (0-5) /HPF Urine RBC (Auto) (0-2) /HPF U Epithel Cells (Auto) (FEW) /HPF Urine Bacteria (Auto) (NEGATIVE) /HPF Urine Culture Reflexed (NO) Urine Glucose (NEGATIVE) mg/dL Influenza Type A Ag (NEGATIVE) Influenza Type B Ag (NEGATIVE) RSV (PCR) (Negative) SARS-CoV-2 (PCR) (NEGATIVE) 09/16/21 09/16/21 09/16/21 Range/Units 12:40 15:52 18:45 WBC (4.0-10.5) K/mm3 RBC (4.1-5.6) M/mm3 Hgb (12.5-18.0) gm/dl Hct (42-50) % MCV (78-100) fl MCH (26-32) pg MCHC (32-36) g/dl RDW (11.5-14.0) % Plt Count (150-450) K/mm3 MPV (7.5-11.0) fl Gran % (36.0-66.0) % Eos # (Auto) (0-0.5) Absolute Lymphs (auto) (1.0-4.6) Absolute Monos (auto) (0.0-1.3) Lymphocytes % (24.0-44.0) % Monocytes % (0.0-12.0) % Eosinophils % (0.00-5.0) % Basophils % (0.0-0.4) % Absolute Granulocytes (1.4-6.9) Basophils # (0-0.4) Sodium (137-145) mmol/L Potassium (3.5-5.1) mmol/L Chloride (98-107) mmol/L Carbon Dioxide (22-30) mmol/L Anion Gap (5-15) MEQ/L BUN (9-20) mg/dL Creatinine (0.66-1.25) mg/dL Estimated GFR ML/MIN Glucose (74-106) mg/dL Calcium (8.4-10.2) mg/dL Magnesium (1.6-2.3) mg/dL Total Bilirubin (0.2-1.3) mg/dL AST (17-59) U/L ALT (0-50) U/L Alkaline Phosphatase (38-126) U/L Troponin I 0.014 0.013 < 0.012 (0.000-0.034) ng/mL NT-Pro-B Natriuret Pep (0-900) pg/mL Serum Total Protein (6.3-8.2) g/dL Albumin (3.5-5.0) g/dL Triglycerides (30-150) mg/dL Cholesterol (50-200) mg/dL LDL Cholesterol (30-100) mg/dL HDL Cholesterol (40-60) mg/dL Heart Disease Risk Ratio TSH 3rd Generation (0.47-4.68) mIU/L Urine Color (YELLOW) Urine Appearance (CLEAR) Urine pH (5-6) Ur Specific [place] (1.005-1.025) Urine Protein (Negative) Urine Ketones (NEGATIVE) Urine Blood (0-5) Herrera/ul Urine Nitrite (NEGATIVE) Urine Bilirubin (NEGATIVE) Urine Urobilinogen (0-1) mg/dL Ur Leukocyte Esterase (NEGATIVE) Urine WBC (Auto) (0-5) /HPF Urine RBC (Auto) (0-2) /HPF U Epithel Cells (Auto) (FEW) /HPF Urine Bacteria (Auto) (NEGATIVE) /HPF Urine Culture Reflexed (NO) Urine Glucose (NEGATIVE) mg/dL Influenza Type A Ag (NEGATIVE) Influenza Type B Ag (NEGATIVE) RSV (PCR) (Negative) SARS-CoV-2 (PCR) (NEGATIVE) 09/16/21 09/17/21 Range/Units 22:00 04:45 WBC (4.0-10.5) K/mm3 RBC (4.1-5.6) M/mm3 Hgb (12.5-18.0) gm/dl Hct (42-50) % MCV (78-100) fl MCH (26-32) pg MCHC (32-36) g/dl RDW (11.5-14.0) % Plt Count (150-450) K/mm3 MPV (7.5-11.0) fl Gran % (36.0-66.0) % Eos # (Auto) (0-0.5) Absolute Lymphs (auto) (1.0-4.6) Absolute Monos (auto) (0.0-1.3) Lymphocytes % (24.0-44.0) % Monocytes % (0.0-12.0) % Eosinophils % (0.00-5.0) % Basophils % (0.0-0.4) % Absolute Granulocytes (1.4-6.9) Basophils # (0-0.4) Sodium 139 (137-145) mmol/L Potassium 3.8 (3.5-5.1) mmol/L Chloride 105 (98-107) mmol/L Carbon Dioxide 27 (22-30) mmol/L Anion Gap 10.8 (5-15) MEQ/L BUN 14 (9-20) mg/dL Creatinine 1.02 (0.66-1.25) mg/dL Estimated GFR > 60.0 ML/MIN Glucose 141 H (74-106) mg/dL Calcium 8.6 (8.4-10.2) mg/dL Magnesium 1.9 (1.6-2.3) mg/dL Total Bilirubin 1.00 (0.2-1.3) mg/dL AST 22 (17-59) U/L ALT 22 (0-50) U/L Alkaline Phosphatase 75 (38-126) U/L Troponin I < 0.012 (0.000-0.034) ng/mL NT-Pro-B Natriuret Pep (0-900) pg/mL Serum Total Protein 6.5 (6.3-8.2) g/dL Albumin 3.7 (3.5-5.0) g/dL Triglycerides 137 (30-150) mg/dL Cholesterol 153 (50-200) mg/dL LDL Cholesterol 91 (30-100) mg/dL HDL Cholesterol 37 L (40-60) mg/dL Heart Disease Risk Ratio 4.1 TSH 3rd Generation (0.47-4.68) mIU/L Urine Color (YELLOW) Urine Appearance (CLEAR) Urine pH (5-6) Ur Specific [place] (1.005-1.025) Urine Protein (Negative) Urine Ketones (NEGATIVE) Urine Blood (0-5) Herrera/ul Urine Nitrite (NEGATIVE) Urine Bilirubin (NEGATIVE) Urine Urobilinogen (0-1) mg/dL Ur Leukocyte Esterase (NEGATIVE) Urine WBC (Auto) (0-5) /HPF Urine RBC (Auto) (0-2) /HPF U Epithel Cells (Auto) (FEW) /HPF Urine Bacteria (Auto) (NEGATIVE) /HPF Urine Culture Reflexed (NO) Urine Glucose (NEGATIVE) mg/dL Influenza Type A Ag (NEGATIVE) Influenza Type B Ag (NEGATIVE) RSV (PCR) (Negative) SARS-CoV-2 (PCR) (NEGATIVE) - Radiology Exams Ordered Rad Exams-Entire Visit: Radiology Procedures Category Date Time Status CHEST 1 VIEW (PORTABLE) Stat Exams 09/16/21 09:43 Completed ECHO W/2D AND DOPPLER [US] Routine Exams 09/16/21 17:13 Taken - Procedures and Test Procedures and Tests throughout Hospitalization: Therapy Orders & Screens 09/16/21 10:09 EKG STAT Comment: Diagnosis: screening 09/16/21 15:05 EKG [id number],QAMX3,PRN Comment: Diagnosis: screening 09/16/21 17:16 Oxygen NASAL CANNULA 2 lpm Comment: Diagnosis: Atrial fibrillation with rapid ventricular response 09/16/21 17:30 EKG ONCE Comment: Diagnosis: Atrial fibrillation with rapid ventricular response 09/17/21 05:00 EKG ONCE Comment: Diagnosis: Atrial fibrillation with rapid ventricular response 09/18/21 05:00 EKG ONCE Comment: Diagnosis: Atrial fibrillation with rapid ventricular response 09/19/21 05:00 EKG ONCE Comment: Diagnosis: Atrial fibrillation with rapid ventricular response Discharge Exam General Appearance: no apparent distress, alert, obese Neurologic Exam: oriented x 3, cooperative Eye Exam: eyes nml inspection Ears, Nose, Throat Exam: moist mucous membranes Neck Exam: normal inspection Respiratory Exam: normal breath sounds, lungs clear, No crackles/rales, No rhonchi, No wheezing Cardiovascular Exam: regular rate/rhythm, normal heart sounds, No murmur Gastrointestinal/Abdomen Exam: soft, normal bowel sounds, No tenderness, No distention, No mass, No guarding, No rebound Back Exam: normal inspection, No rash Extremity Exam: normal inspection, No pedal edema, No swelling Skin Exam: normal color, warm, dry, No rash Final Diagnosis/Problem List - Final Discharge Diagnosis/Problem (1) Atrial fibrillation with rapid ventricular response Current Visit: Yes Status: Acute Assessment & Plan: Resolved, now on cardizem and Eliquis. 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 Needs to be careful with activities to avoid head injury etc due to increased risk of bleed ing on two blood thinners. Code(s): I48.91 - UNSPECIFIED ATRIAL FIBRILLATION (2) Coronary artery disease Current Visit: Yes Status: Chronic Assessment & Plan: Hx stents, will stay on plavix for now. Code(s): I25.10 - ATHSCL HEART DISEASE OF [place] CORONARY ARTERY W/O ANG PCTRS (3) Type 2 diabetes mellitus Current Visit: Yes Status: Chronic - Discharge Disposition: Home, Self-Care Condition: Good Prescriptions: New Diltiazem HCl 120 mg [Cardizem CD 120 MG] 120 mg PO DAILY #30 Apixaban [Eliquis 2.5 mg Tablet] 5 mg PO BID #60 tablet Continue Clopidogrel Bisulfate 75 mg [PLAVIX 75 MG Tablet] 75 mg PO DAILY hydroCHLOROthiazide [Hydrochlorothiazide] 12.5 mg PO DAILY Ubidecarenone [Co Q-10] 200 mg PO DAILY Tamsulosin HCl 0.4 mg [Flomax 0.4 MG] 0.4 mg PO BID Propranolol HCl 20 mg PO BID Omeprazole 40 mg PO DAILY Mv-Mn/Iron/Folic Acid/Herb 190 [Vitamin D3 Complete Caplet] 1 tab PO DAILY Levothyroxine Sodium [Levothyroxine] 50 mcg PO DAILY Empagliflozin [Jardiance] 10 mg PO DAILY Cetirizine HCl [Zyrtec] 10 mg PO DAILY Atorvastatin Calcium 40 mg PO DAILY Follow up with: YANICK CAMARA [Primary Care Provider] - EMMETT GREEN MD [Family Provider] -
[2021-09-17] MEDS ORDERED: ELIQUIS 2.5 MG TABLET PO SCH (10:00)
[2021-09-17] MEDS ORDERED: Cardizem CD 120 MG PO SCH (10:00)
== END 2021-09-17 10:55 | disposition home or self-care (01) ==
LOC: EDSTATUS 09:34 → ED 09:34 → ICU 13:22
PROVIDERS: ADMIT Family Medicine; ATTEND Family Medicine
DX: I48.91 Unspecified atrial fibrillation (principal); I25.10 Atherosclerotic heart disease of native coronary artery without angina pectoris; K57.30 Diverticulosis of large intestine without perforation or abscess without bleeding; E11.9 Type 2 diabetes mellitus without complications; Z12.11 Encounter for screening for malignant neoplasm of colon; E03.9 Hypothyroidism, unspecified; Z79.899 Other long term (current) drug therapy; Z79.01 Long term (current) use of anticoagulants
CPT/HCPCS: 0241U; 36415; 71045; 80053; 80061; 81001; 82947; 83721; 83735; 83880; 84443; 84484; 85025; 93005; 93041; 93306; 94760; 96372; 96374; 99285; G0121; 93268; J1650; J2704; A9270-GY; G0378